=== PATIENT | female | born 1950 | race Caucasian/White ===

== ENCOUNTER 2017-01-05 14:50 | Outpatient (CLI) ==
--- NOTE | 2017-01-05 15:28 | CT ---
EXAM: CT lumbar spine without contrast. HISTORY: Low back pain. Left leg sciatica. COMPARISON: Abdominal CT 08/02/2015. TECHNIQUE: Multiple axial images of the lumbar spine were obtained without intravenous contrast. Im ages were reformatted in the sagittal and coronal planes. FINDINGS: Alignment is normal. Vertebral body heights are maintained. There is moderate loss of di sc height at L2-3 and L4-5 with mild loss of disc height at L5-S1. No fracture or subluxation identi fied. Paravertebral soft tissues without acute abnormality. Atherosclerotic calcifications are pres ent. T12-L1: No neural compromise. L1-2: Broad-based disc bulge and facet arthropathy with mild central canal stenosis. L2-3: Disc osteophyte formation and facet arthropathy with mild central canal stenosis. L3-4: Broad-based disc bulge and facet arthropathy with mild central canal stenosis. L4-5: Disc osteophyte formation and facet arthropathy with mild central canal stenosis and moderate neural foraminal narrowing. L5-S1: Disc osteophyte formation and facet arthropathy with right greater than left moderate neural foraminal narrowing. IMPRESSION: Multilevel degenerative changes as described.
== END 2017-01-05 14:51 | disposition home or self-care (01) ==
LOC: RAD 14:50
PROVIDERS: ATTEND Internal Medicine
DX: M54.42 Lumbago with sciatica, left side (principal)

== ENCOUNTER 2017-01-28 15:07 | Outpatient (CLI) | payer OTHER ==
--- NOTE | 2017-01-28 23:31 | MRI ---
EXAM: MRI lumbar spine without IV contrast. DATE: 28 January 2017. HISTORY: Low back pain. TECHNIQUE: Sagittal and axial T1W and T2W sequences of the lumbar spine along with sagittal IR and c oronal T2W sequences were obtained using 1.2 Jen magnet. No IV contrast. COMPARISON: CT L-spine 05 January 2017. FINDINGS: There are five [id number] lumbar vertebra. No lumbar scoliosis is evident. A 2 mm a nterior subluxation of L5 relative to L4 is noted. No other subluxation, acute fracture, osseous mal ignancy, or pars interarticularis defect is demonstrated. Lumbar vertebra are normal in height. T2W /T1W bone marrow signal is somewhat heterogeneous, likely due to fatty infiltration. Small/moderate osteophytes are identified at multiple thoracic and lumbar vertebra. Moderate T11-12, moderate L2-3, mild/moderate L4-5, and mild/moderate L5-S1 disc space narrowing is detected. No acute sacral fract ure or stress reaction is present. Small anterior osteophytes are seen in the right SI joint. Abund ant epidural fat at L5-S1 and in the sacral canal causes significant narrowing of the thecal sac. Co nus medullaris terminates at L1. No cord edema, syrinx, myelomalacia, or neoplasm is identified. No retroperitoneal lymphadenopathy, paraspinal mass, or aortic aneurysm is seen. Psoas muscles are n ormal. There is minor bilateral posterior paraspinal muscle atrophy inferiorly. Visible portions of the liver, spleen, adrenal glands, and kidneys reveal no definitive abnormality. Segmental analysis: T11-12: Small posterior disc bulge and small osteophytes at T11 and T12 cause slight anterior cord f lattening and marked central canal stenosis. Each foramen is patent. T12-L1: Broad posterior disc bulge (4 mm AP) and superimposed midline disc extrusion (2.7 mm AP x 5 mm transverse x 3.5 mm behind the L1 superior endplate) do not cause cord compression, central stenos is, or foraminal stenosis. L1-2: Broad posterior disc bulge (4.4 mm AP), mild bilateral facet arthropathy, and moderate ligamen t flavum hypertrophy cause marked central canal stenosis and minor right foraminal narrowing L2-3: Moderate concentric disc bulge and mild facet arthropathy cause mild central canal stenosis an d mild bilateral foraminal stenoses. L3-4: Moderate concentric disc bulge, mild facet arthropathy, and mild ligamentum flavum hypertrophy cause mild central canal stenosis and mild bilateral foraminal stenoses. L4-5: Large concentric disc bulge and mild facet arthropathy cause mild central canal stenosis and m ild bilateral foraminal stenoses. There is mild ( left greater than right) lateral recess stenosis n ear the superior endplate of L5. L5-S1: Small concentric disc bulge and mild facet arthropathy cause mild/moderate narrowing at the o pening to each foramen. Right L5 nerve root may contact the disc bulge lateral to the foramen. Thec al sac is markedly narrow due to abundant epidural fat. IMPRESSIONS: 1. Lumbar spine moderate spondylosis, mild facet arthropathy, and multilevel DDD. 2. Multilevel central canal stenoses (T11-12: Marked. L1-2: Marked. L2-3: Mild. L3-4: Mild. L4-5 : Mild). 3. Spinal lipomatosis at L5-S1 and sacral canal causes significant thecal sac narrowing. 4. Multilevel foraminal stenoses as described. Right L5 nerve root may contact the disc bulge later al to the foramen. 5. Bone marrow heterogeneity - likely due to fatty infiltration.
== END 2017-01-28 15:08 | disposition home or self-care (01) ==
LOC: RAD 15:07
PROVIDERS: ATTEND Internal Medicine
DX: M54.40 Lumbago with sciatica, unspecified side (principal)

== ENCOUNTER 2017-07-12 11:13 | Inpatient (IN) | payer OTHER ==
[2017-07-12] MEDS ORDERED: MORPHINE 4 MG/ML VIAL IVP PRN (11:35)
[2017-07-12] MEDS ORDERED: VISTARIL INJ IM PRN (11:35)
[2017-07-12] MEDS ORDERED: NITROSTAT SL PRN (11:35)
[2017-07-12] MEDS ORDERED: ATROPINE SULFATE PFS IVP PRN (11:35)
[2017-07-12] MEDS ORDERED: ZOFRAN 4 MG/2 ML IVP STA (11:46)
[2017-07-12] MEDS ORDERED: ZOFRAN 4 MG/2 ML IVP PRN (11:46)
[2017-07-12 12:01] VITALS: BMI 26.0
[2017-07-12] MEDS: DEXTROSE 5%-1/2NS IV SOLUTION 1,000 ML IV SCH ×2 (12:21→21:08)
[2017-07-12] MEDS: BENTYL PO SCH ×2 (14:03→21:24)
--- NOTE | 2017-07-12 14:12 | DI ---
Exam: Two views of the chest. Comparison: 10/18/2014. Reason for exam: Epigastric pain. FINDINGS: No pneumothorax, pleural effusion, or focal consolidation. The cardiac silhouette is unch anged. The imaged osseous structures appear grossly unremarkable. Impression: No acute cardiopulmonary process.
[2017-07-12] MEDS: K-DUR PO SCH ×3 (15:17→21:25)
[2017-07-12] MEDS: ROCEPHIN 1 GM in SODIUM CHLORIDE 50 ML IV SCH (15:36)
--- NOTE | 2017-07-12 16:08 | CT ---
EXAM: CT abdomen pelvis with contrast HISTORY: Abdominal pain COMPARISON: 08/02/2015 TECHNIQUE: CT abdomen pelvis performed with intravenous contrast. Coronal and sagittal reformatted images obtained. FINDINGS: The lung bases clear. No free air. No acute abnormalities of the bones. Degenerative ch stanley in the spine. Heart normal in size. Liver appears normal. Patient status post cholecystectomy . Pancreas unremarkable. Granulomas calcification spleen. Spleen otherwise unremarkable. Adrenals unremarkable. There are bilateral areas of wedge shaped low attenuation in the kidneys. Bilateral urothelial thickening of the renal pelvis and ureters. Bilateral perinephric stranding. Aorta norm al in caliber. Extensive atherosclerosis. No lymphadenopathy or ascites. Bladder unremarkable. Sm all hiatal hernia. Gastric wall thickening versus underdistension. No dilated loops small bowel. Low attenuation in the cecal region may represent intraluminal fluid, though significant focal wall thic kening is a possibility. IMPRESSION: 1.Bilateral areas of wedge shaped low attenuation in the kidneys. Findings most likely represent pyel onephritis. Infarcts considered less likely. Bilateral urothelial thickening of the renal pelvis an d ureters, likely infectious/inflammatory. Bilateral perinephric stranding. 2. Low attenuation in the cecal region may represent intraluminal fluid, though significant focal wal l thickening is a possibility. Correlation with colonoscopy recommended to exclude underlying mass le raymon. This is not have typical appearance for colitis and this would be favored less likely. 3. Gastric wall thickening versus underdistension, may relate to gastritis. Findings can be correlat e with endoscopy. Findings called to patient nurse for 4:04 p.m. 07/12/2017
[2017-07-12] MEDS: PROTONIX PO SCH (16:38)
[2017-07-12] MEDS: TYLENOL PO PRN (17:03)
[2017-07-12] MEDS ORDERED: CRESTOR PO SCH (21:00)
[2017-07-12] MEDS ORDERED: NON-FORMULARY MEDICATION (Rosuvastatin Calcium [Crestor] 20 MG) PO SCH (21:00)
[2017-07-12] MEDS ORDERED: TOPROL XL PO SCH (21:00)
[2017-07-12] MEDS ORDERED: GI COCKTAIL PO ONE (21:00)
[2017-07-12] MEDS: LOPRESSOR PO SCH (21:24)
[2017-07-12] MEDS: ATIVAN PO SCH (21:25)
[2017-07-13] MEDS: TYLENOL PO PRN ×2 (02:12→22:54)
[2017-07-13] MEDS: PROTONIX PO SCH ×2 (05:50→16:42)
[2017-07-13] MEDS: DEXTROSE 5%-1/2NS IV SOLUTION 1,000 ML IV SCH ×2 (05:50→11:43)
[2017-07-13] MEDS ORDERED: ASPIRIN EC PO SCH (08:00)
[2017-07-13] MEDS: ROCEPHIN 1 GM in SODIUM CHLORIDE 50 ML IV SCH (08:56)
[2017-07-13] MEDS: NORVASC PO SCH (08:57)
[2017-07-13] MEDS: DIOVAN PO SCH (08:57)
[2017-07-13] MEDS: WELLBUTRIN XL PO SCH (08:58)
[2017-07-13] MEDS: LOPRESSOR PO SCH ×2 (08:58→21:42)
[2017-07-13] MEDS: BENTYL PO SCH ×3 (08:58→21:42)
[2017-07-13] MEDS: ASPIRIN EC PO SCH (08:58)
[2017-07-13] MEDS: VITAMIN D PO SCH (08:58)
[2017-07-13] MEDS: ATIVAN PO SCH ×2 (08:58→21:43)
[2017-07-13] MEDS ORDERED: BUPROPION HCL PO SCH (09:00)
[2017-07-13] MEDS ORDERED: VALSARTAN PO SCH (09:00)
[2017-07-13] MEDS ORDERED: [UNRECOGNIZED DRUG - OTHER] PO SCH (09:00)
[2017-07-13] MEDS ORDERED: AMLODIPINE BESYLATE PO SCH (09:00)
[2017-07-14] MEDS: PROTONIX PO SCH ×2 (06:08→17:10)
[2017-07-14] MEDS: VITAMIN D PO SCH (09:22)
[2017-07-14] MEDS: ATIVAN PO SCH ×2 (09:22→20:33)
[2017-07-14] MEDS: ROCEPHIN 1 GM in SODIUM CHLORIDE 50 ML IV SCH (09:22)
[2017-07-14] MEDS: DIOVAN PO SCH (09:23)
[2017-07-14] MEDS: BENTYL PO SCH ×3 (09:23→20:33)
[2017-07-14] MEDS: ASPIRIN EC PO SCH (09:23)
[2017-07-14] MEDS: NORVASC PO SCH (09:23)
[2017-07-14] MEDS: WELLBUTRIN XL PO SCH (09:24)
[2017-07-14] MEDS: LOPRESSOR PO SCH ×2 (09:24→20:33)
--- NOTE | 2017-07-14 12:39 | HP ---
DATE OF SERVICE: 07/12/17 REASON FOR HOSPITALIZATION/HISTORY OF PRESENT ILLNESS: Lost 5 pounds, vomiting, no diarrhea. The patient just came back from [place]. Not eaten much for 5 days. Upper abdominal pain started 5 days with vomiting times three daily. PAST MEDICAL HISTORY: Hypertension CAD Cholecystomy Dyslipidemia IBS JASEN Panic attacks Depression Dumping syndrome B12 deficiency PAST SURGICAL HISTORY: Hysterectomy Gallbladder Abscess right breast Back surgery Stent 2007 REVIEW OF SYSTEMS: CONSTITUTIONAL: No fever, Fatigue. HEENT: No sinus drainage, no sore throat. RESPIRATORY: No cough, no congestion. CARDIOVASCULAR: No atypical chest pain for coronary artery disease. No angina , CHF symptoms, palpitations or shortness of breath. GASTROINTESTINAL: No melena. Abdominal pain. No GERD. GENITOURINARY: No hematuria, no prostatism, no polyuria. MATERIAL WORKER: No blackout, no dizziness, no headache, no double vision. MUSCULOSKELETAL: No osteoarthritis pain, no joint swelling. ENDOCRINE: Weight loss-5 pounds, no weight gain. SKIN: Not dry, no rash. PSYCHIATRIC: Not anxious, no depression, no suicidal thoughts, no homicidal thoughts. SOCIAL HISTORY: Marital Status: . Alcohol Usage: No. Tobacco Usage: No. FAMILY HISTORY: Father Mother Brother 0 Sister 2 MEDICATIONS: Aspirin 81mg PO daily Exforge 10-320 PO daily Nitroglycerin PRN Metoprolol 50mg PO twice a day Wellbutrin XL 300mg PO daily Dicyclomine 10mg PO three times a day Crestor 20mg PO daily D3 Ativan 1mg PO twice a day Nexium 40mg Po daily Unable to take Metoprolol twice a day ALLERGIES: Vytorin B12 pill Atorvastatin Pain medication PHYSICAL EXAMINATION: V/S: Pulse 85, blood pressure 122/68, temperature 98.6, pulse ox 98% GENERAL APPEARANCE: Oriented times three. Mucosa Membrane dry. HEENT: Normal. NECK: No JVP, no bruits. RESPIRATORY: Lungs are clear. CARDIOVASCULAR: S1, S2, no S3, no murmurs. No cyanosis, clubbing. No ascites. GI/ABDOMEN: Tenderness; upper quadrants. Bowel sounds are active. EXTREMITIES: edema, pulses +1, equal. MATERIAL WORKER: Deep tendon reflexes, sensory, motor and gait all normal. RECTAL: Dr. Le 03/24/PELVIC: Advised yearly; mammogram 2014. SKIN: Dry. LABS: 1+ protein in the urine, trace ketones, 2+ blood, nitrate positive, 2+ leukocytes, 2+ bacteria. Chest x-ray shows no acute process. Sodium 136, potassium 3.1. BUN 7, creatinine 0.85, AST 11, ALT 9. WBC 12.0, hgb 12.3, hct 35.1, plt count 217. ASSESSMENT: 1. Acute gastritis 2. Dehydration 3. Abdominal pain, epigastric 4. Right sciatica, Dr. Gore status post surgery 02/25 5. CAD with stent 2007 6. Cholecystectomy 7. Hypertension 8. Dyslipidemia 9. IBS 10.Panic attacks 11.Depression 12.JASEN 13.Dumping syndrome 14.B12 deficiency- 394 03/28 15.Abdominal pain 16.Vomiting 17.Urinary tract infection PLAN: 1. Admit 2. Routine telemetry 3. Zofran 4mg IV now and Q 6 hours for nausea and vomiting 4. Protonix 40mg PO twice a day 5. 1000cc D5 1/2 normal saline 8 hours 6. Daily CBC and CMP AM 7. Serial amylase and lipase 8. CT scan abdomen and pelvis with contrast 9. Continue all home medications except Nexium 10.Rocephin 1 gram IV daily 11.Will start 40meq Potassium PO three times a day today ADDENDUM: The patient's U/A was abnormal and then she started running fever around 101.1 during the evening hours. The patient is already being given Rocephin. The CT scan of the abdomen showed possibility to pyelonephritis. The patient's abdominal pain was mostly anteriorly in the periumbilical area. The patient along with acute pyelonephritis probably has acute gastritis. The patient would be treated with IV fluids, IV antibiotics. Cultures are pending from the urine. The patient had hypokalemia which is being treated with oral Potassium supplements. Otherwise condition is stable. TIME SPENT: More than 70 minutes. [facility]
--- NOTE | 2017-07-14 13:14 | PN ---
DATE OF SERVICE: 07/13/17 SUBJECTIVE: 66 year old white female hospitalized with acute pyelonephritis and acute gastritis. The CT scan showed acute gastritis and acute pyelonephritis. She is gaining the strength back. REVIEW OF SYSTEMS: CONSTITUTIONAL: No night sweats. No fatigue, malaise, lethargy. No fever or chills. HEENT: Eyes: No visual changes. No eye pain. No eye discharge. ENT: No runny nose. No epistaxis. No sinus pain. No sore throat. No odynophagia. No congestion. RESPIRATORY: No cough, no congestion. No hemoptysis. No shortness of breath. CARDIOVASCULAR: No angina symptoms. No CHF symptoms. No atypical chest pain for CAD. No palpitations. No orthopnea. GASTROINTESTINAL: No abdominal pain. Nausea practically has subsided. No diarrhea or constipation. No hematemesis. No hematochezia. Appetite has improved. GENITOURINARY: No urgency. No frequency. No dysuria. No hematuria. No obstructive symptoms. No discharge. No pain. No significant abnormal bleeding. MUSCULOSKELETAL: No musculoskeletal pain; no joint swelling. NEUROLOGICAL: No headache. No neck pain. No syncope. No seizures. No dizziness. PSYCHIATRIC: Not anxious. No depression. No suicidal thoughts. No homicidal thoughts. SKIN: No rash. No lesions. No wounds. ENDOCRINE: No unexplained weight loss. No weight gain. HEMATOLOGIC/LYMPHATIC: No anemia. No purpura. No petechiae. No prolonged or excessive bleeding. No palpable lymph nodes. PHYSICAL EXAMINATION: GENERAL: The patient is oriented to time, place and person. VITAL SIGNS: Temperature 98.8, pulse 74, respiratory rate 24, Blood pressure 107/66 and pulse ox 94%. HEENT: Head normocephalic, atraumatic. Eyes: Extraocular muscles are intact. Pupils are equal, round and reactive to light and accommodation. Ears: No lesions. Nose appeared normal. Throat: No exudate or erythema. NECK: Supple. No JVD, no carotid bruit. No lymphadenopathy or thyromegaly. LUNGS: Decreased breath sounds but Clear to auscultation. Percussion note normal. Chest symmetrical. HEART: S1, S2, no S3. No murmurs. No cyanosis or clubbing. No ascites. Pulses: Dorsalis pedis and posterior tibial pulses +1 to +2 both sides. ABDOMEN: Soft. Nontender. Bowel sounds active. No CVA tenderness. No mass felt. EXTREMITIES: No edema. Full range of motion of all extremities, equal. NEUROLOGIC: No focal deficit. Cranial nerves II through XII are grossly intact. No headache, no double vision or headache. SKIN: Not dry. Intact. Turgor - better but still not up to normal. LYMPHATIC: No palpable lymph nodes/no lymphedema. MUSCULOSKELETAL: Normal joints with no swelling. Muscle tone is normal. LABS: Hgb 11.6, hct 34, WBC 9,000 normal differential, creatinine 0.8, BUN 4, potassium 4 ASSESSMENT: 1. Acute pyelonephritis 2. Dehydration 3. Acute gastritis 4. Coronary artery disease 5. Obesity PLAN: 1. Continue IV antibiotics 2. Continue IV fluids 3. DC the fluids after the present bag is over 4. Up and about 5. Continue Protonix CONDITION: Stable; Cardiovascular status is stable. TIME SPENT: More than 30 minutes. Plan and coordination of the patient's care discussed in the presence of nurse. ROSEANNA
[2017-07-15 05:18] VITALS: BP 129/72; TEMP 98.6
[2017-07-15] MEDS: PROTONIX PO SCH (05:31)
[2017-07-15] MEDS: ROCEPHIN 1 GM in SODIUM CHLORIDE 50 ML IV SCH (08:17)
[2017-07-15] MEDS: BENTYL PO SCH (08:21)
[2017-07-15] MEDS: LOPRESSOR PO SCH (08:21)
[2017-07-15] MEDS: NORVASC PO SCH (08:21)
[2017-07-15] MEDS: DIOVAN PO SCH (08:21)
[2017-07-15] MEDS: WELLBUTRIN XL PO SCH (08:21)
[2017-07-15] MEDS: ATIVAN PO SCH (08:22)
[2017-07-15] MEDS: VITAMIN D PO SCH (08:22)
[2017-07-15] MEDS: ASPIRIN EC PO SCH (08:22)
--- NOTE | 2017-07-15 09:24 | PN ---
DATE OF SERVICE: 07/14/17 SUBJECTIVE: 66 year old white female hospitalized with acute pyelonephritis. The patient's condition has improved and she doesn't have any nausea or vomiting anymore. She had e-coli sensitive to practically all antibiotics. She is on Rocephin. REVIEW OF SYSTEMS: CONSTITUTIONAL: No night sweats. No fatigue, malaise, lethargy. No fever or chills. HEENT: Eyes: No visual changes. No eye pain. No eye discharge. ENT: No runny nose. No epistaxis. No sinus pain. No sore throat. No odynophagia. No congestion. RESPIRATORY: No cough, no congestion. No hemoptysis. No shortness of breath. CARDIOVASCULAR: No angina symptoms. No CHF symptoms. No atypical chest pain for CAD. No palpitations. No orthopnea. GASTROINTESTINAL: No abdominal pain. No nausea or vomiting. No diarrhea or constipation. No hematemesis. No hematochezia. GENITOURINARY: No urgency. No frequency. No dysuria. No hematuria. No obstructive symptoms. No discharge. No pain. No significant abnormal bleeding. MUSCULOSKELETAL: No musculoskeletal pain; no joint swelling. NEUROLOGICAL: No headache. No neck pain. No syncope. No seizures. No dizziness. PSYCHIATRIC: Not anxious. No depression. No suicidal thoughts. No homicidal thoughts. SKIN: No rash. No lesions. No wounds. ENDOCRINE: No unexplained weight loss. No weight gain. HEMATOLOGIC/LYMPHATIC: No anemia. No purpura. No petechiae. No prolonged or excessive bleeding. No palpable lymph nodes. PHYSICAL EXAMINATION: GENERAL: The patient is oriented to time, place and person. VITAL SIGNS: Temperature 98.7, pulse 73, respiratory rate 20, blood pressure 105/60 and pulse ox 96%. HEENT: Head normocephalic, atraumatic. Eyes: Extraocular muscles are intact. Pupils are equal, round and reactive to light and accommodation. Ears: No lesions. Nose appeared normal. Throat: No exudate or erythema. NECK: Supple. No JVD, no carotid bruit. No lymphadenopathy or thyromegaly. LUNGS: Clear to auscultation. Percussion note normal. Chest symmetrical. HEART: S1, S2, no S3. No murmurs. No cyanosis or clubbing. No ascites. Pulses: Dorsalis pedis and posterior tibial pulses +1 to +2 both sides. ABDOMEN: Soft. Nontender. Bowel sounds active. No CVA tenderness. No mass felt. EXTREMITIES: No edema. Full range of motion of all extremities, equal. NEUROLOGIC: No focal deficit. Cranial nerves II through XII are grossly intact. No headache, no double vision or headache. SKIN: Not dry. Intact. Turgor - normal. LYMPHATIC: No palpable lymph nodes/no lymphedema. MUSCULOSKELETAL: Normal joints with no swelling. Muscle tone is normal. ASSESSMENT: 1. Acute pyelonephritis seems to be resolving with Rocephin 2. Cardiovascular status is stable. 3. Acute gastritis has resolved PLAN: 1. Continue Rocephin 2. Discontinue IV fluids 3. Discontinue Telemetry CONDITION: Improving. TIME SPENT: More than 30 minutes. Plan and coordination of the patient's care discussed in the presence of nurse. ROSEANNA
--- NOTE | 2017-07-15 09:26 | CM.DICTOOL ---
ADMISSION: 07/12/17 11:13 DISCHARGE: JULY 15, 2017 DATE OF SERVICE: 07/15/17 FINAL DIAGNOSIS ACUTE BILATERAL PYELONEPHRITIS ACUTE GASTRITIS UTI, E-COLI ORGANISM DEHYDRATION ABDOMINAL/EPIGASTRIC PAIN HYPERTENSION RIGHT SCIATICA CAD WITH STENT APPLICATION, 2007 GENERALIZED ANXIETY DISORDER DUMPING SYNDROME B12 DEFICIENCY IBS DEPRESSION CHOLECYSTECTOMY LUMBAR SURGERY, 2017 LAST VITALS Temp Pulse Resp BP Pulse Ox 98.6 F 72 20 129/72 97 07/15/17 05:17 07/15/17 05:17 07/15/17 05:17 07/15/17 05:17 07/15/17 05:17 TAKE THESE MEDICATIONS AT HOME Exforge 10-320 mg PO DAILY [facility] Last Admin: 07/15/17 08:21 Dose: 10 mg-320 Aspirin (Aspirin Ec) 81 mg PO DAILYWM [facility] Last Admin: 07/15/17 08:22 Dose: 81 mg Bupropion HCl (Wellbutrin Xl) 300 mg PO DAILY [facility] Last Admin: 07/15/17 08:21 Dose: 300 mg Cholecalciferol (Vitamin D) 1,000 unit PO DAILY [facility] Last Admin: 07/15/17 08:22 Dose: 1,000 unit Dicyclomine HCl (Bentyl) 10 mg PO TID [facility] Last Admin: 07/15/17 08:21 Dose: 10 mg Lorazepam (Ativan) 1 mg PO BID [facility] Last Admin: 07/15/17 08:22 Dose: 1 mg Metoprolol Tartrate (Lopressor) 50 mg PO BID [facility] Last Admin: 07/15/17 08:21 Dose: 50 mg Crestor 20 mg PO Bedtime Last Admin: Nexium 40 mg PO Daily [facility] Last Admin: 07/15/17 05:31 Dose: 40 mg ALLERGIES No Known Allergies Allergy (Unverified 07/12/17 14:32) DISCONTINUED MEDICATIONS None NEW PRESCRIPTIONS: Ceftin 250 mg BID for 5 days SMOKING: Not Applicable DISEASE SPECIFIC EDUCATION: Pyelonephritis UTI Medication Appointment LAB REVIEW: 07/14/17 04:30 07/14/17 04:30 PLAN: DISCHARGE HOME DIET: REGULAR TOLERATED, INCREASE LIQUIDS ACTIVITY: GRADUALLY RESUME TOLERATED FULL CODE STATUS AN APPOINTMENT IS SCHEDULED WITH DR. KEY/CARMELO JUAREZ APRN ON July AT 1:45 PM MRS. KIRAN IS ALERT AND ORIENTED X 3. SHE IS INDEPENDENT WITH ADL'S AND REQUIRES NO ASSISTIVE DEVICE WITH AMBULATION. MEAL INTAKES HAVE IMPROVED SINCE HER ADMISSION AT 10-75%. NO NAUSEA REPORTED. SHE IS CONTINENT OF BOWEL/ BLADDER AND REPORTS NORMAL URINARY FLOW AT TIME OF DISCHARGE. SKIN IS INTACT AND FREE OF RASHES, DECUBIUTS ULCERS. JESS KEY MD CARMELO JUAREZ APRN
--- NOTE | 2017-07-19 11:06 | PN ---
DATE OF SERVICE: 07/15/17 SUBJECTIVE: The patient was seen today. The patient is doing well. She is up and about, afebrile. REVIEW OF SYSTEMS: CONSTITUTIONAL: No night sweats. No fatigue, malaise, lethargy. No fever or chills. HEENT: Eyes: No visual changes. No eye pain. No eye discharge. ENT: No runny nose. No epistaxis. No sinus pain. No sore throat. No odynophagia. No congestion. RESPIRATORY: No cough, no congestion. No hemoptysis. No shortness of breath. CARDIOVASCULAR: No angina symptoms. No CHF symptoms. No atypical chest pain for CAD. No palpitations. No orthopnea. GASTROINTESTINAL: No abdominal pain. No nausea or vomiting. No diarrhea or constipation. No hematemesis. No hematochezia. GENITOURINARY: No urgency. No frequency. No dysuria. No hematuria. No obstructive symptoms. No discharge. No pain. No significant abnormal bleeding. MUSCULOSKELETAL: No musculoskeletal pain; no joint swelling. NEUROLOGICAL: No headache. No neck pain. No syncope. No seizures. No dizziness. PSYCHIATRIC: Not anxious. No depression. No suicidal thoughts. No homicidal thoughts. SKIN: No rash. No lesions. No wounds. ENDOCRINE: No unexplained weight loss. No weight gain. HEMATOLOGIC/LYMPHATIC: No anemia. No purpura. No petechiae. No prolonged or excessive bleeding. No palpable lymph nodes. PHYSICAL EXAMINATION: HEENT: Head normocephalic, atraumatic. Eyes: Extraocular muscles are intact. Pupils are equal, round and reactive to light and accommodation. Ears: No lesions. Nose appeared normal. Throat: No exudate or erythema. NECK: Supple. No JVD, no carotid bruit. No lymphadenopathy or thyromegaly. LUNGS: Clear to auscultation. Percussion note normal. Chest symmetrical. HEART: S1, S2, no S3. No murmurs. No cyanosis or clubbing. No ascites. Pulses: Dorsalis pedis and posterior tibial pulses +1 to +2 both sides. ABDOMEN: Soft. Nontender. Bowel sounds active. No CVA tenderness. No mass felt. EXTREMITIES: No edema. Full range of motion of all extremities, equal. NEUROLOGIC: No focal deficit. Cranial nerves II through XII are grossly intact. No headache, no double vision or headache. SKIN: Not dry. Intact. Turgor - normal. LYMPHATIC: No palpable lymph nodes/no lymphedema. MUSCULOSKELETAL: Normal joints with no swelling. Muscle tone is normal. ASSESSMENT: 1. Acute pyelonephritis with E-coli seems to be under control with Rocephin PLAN: 1. The patient will be discharged home 2. Hydration status has improved 3. Gastritis has resolved TIME SPENT: More than 30 minutes. Plan and coordination of the patient's care discussed in the presence of nurse. ROSEANNA
--- NOTE | 2017-07-19 11:20 | DS ---
DATE OF SERVICE: 07/15/17 FINAL DIAGNOSIS: 1. Acute bilateral pyelonephritis 2. Acute gastritis 3. UTI, E-coli organism 4. Dehydration 5. Abdominal /epigastric pain 6. Hypertension 7. Right sciatica 8. CAD with stent application, 2007 9. Generalized anxiety disorder 10.Dumping syndrome 11.B12 Deficiency 12.IBS 13.Depression 14.Cholecystectomy 15.Lumbar surgery, 2017 LAST VITALS: Temperature 98.6, pulse 72, respiratory rate 20, blood pressure 129/72 and pulse ox 97%. DISCHARGE INSTRUCTIONS: Discharge home today. Full code status. An appointment is scheduled with Dr. Soto/Lilli Burkett APRN on July 22 at 1:45pm. MEDICATIONS AT DISCHARGE: Exforge 10-320mg PO daily Aspirin 81mg PO daily Wellbutrin XL 300mg PO daily Vitamin D 1,000 unit PO daily Bentyl 10mg PO three times a day Ativan 1mg Po twice a day Lopressor 50mg PO twice a day Crestor 20mg PO bedtime Nexium 40mg PO daily ALLERGIES: No known allergies NEW PRESCRIPTIONS: Ceftin 250mg Twice a day for 5 days DIET INSTRUCTIONS: Regular as tolerated, increased liquids ACTIVITY: Gradually resume as tolerated SMOKING: N/A DISEASE SPECIFIC EDUCATION: Pyelonephritis UTI Medication Appointment HOSPITAL COURSE: Alberta Olivares was hospitalized with vomiting, nausea and abdominal pain. On further workup the patient had acute pyelonephritis with E-coli and gastritis. The patient was treated with Protonix, Carafate and Rocephin for acute pyelonephritis e-coli sensitive to all antibiotics. The patient was discharged home on Ceftin. The patient's cardiovascular status was stable throughout the stay in the hospital. The patient's other problems are stable involving her back with status post back surgery. Cardiovascular status was stable with no fluid overload or ischemia. CONDITION: Stable. TIME SPENT: More than 60 minutes. MTDD
--- NOTE | 2017-07-19 11:21 | PN ---
07/12/17: Level 5 07/13/17: Intermediate 07/14/17: Intermediate 07/15/17: D as in discharge MTDD
== END 2017-07-15 10:40 | disposition home or self-care (01) | DRG 690 ==
LOC: MEDSURG A 11:13
PROVIDERS: ADMIT Internal Medicine; ATTEND Internal Medicine
DX: N10 Acute pyelonephritis (principal); K29.00 Acute gastritis without bleeding; E86.0 Dehydration; B96.20 Unspecified Escherichia coli [E. coli] as the cause of diseases classified elsewhere; I10 Essential (primary) hypertension; I25.10 Atherosclerotic heart disease of native coronary artery without angina pectoris; F41.1 Generalized anxiety disorder; K91.1 Postgastric surgery syndromes; E53.8 Deficiency of other specified B group vitamins; K58.9 Irritable bowel syndrome, unspecified; F32.9 Major depressive disorder, single episode, unspecified; E66.9 Obesity, unspecified; Z90.49 Acquired absence of other specified parts of digestive tract; Z79.899 Other long term (current) drug therapy; Z95.5 Presence of coronary angioplasty implant and graft
CPT/HCPCS: 36415; 80053; 81001; 82150; 82550; 83690; 84484; 85025; 87086; 87186; 93005; 93010